=== PATIENT | female | born 1965 ===

== ENCOUNTER 2024-04-21 08:39 | Observation (INO) ==
--- NOTE | 2023-10-11 10:31 | PAT Medication Instructions ---
Medication Instructions Date of Service October 11, 2023 Home Medications Medication Instructions Recorded tizanidine 4 mg tablet 4 mg PO BID PRN muscle spasticity 08/15/23 #60 tabs losartan 100 mg-hydrochlorothiazide 25 mg tablet 1 tab PO QAM albuterol sulfate 90 mcg/actuation aerosol inhaler 1 inh inhalation UD PRN citalopram 40 mg tablet 40 mg PO HS diazepam 5 mg tablet 5 mg PO UD PRN famotidine 1 tab PO DAILY PRN tizanidine 4 mg tablet 4 mg PO BID PRN diphenhydramine HCl 25 mg tablet (Allergy) 25 mg PO HS PRN Continue as directed albuterol sulfate 90 mcg/actuation aerosol inhaler 1 inh inhalation UD PRN(use if needed; please bring with you to hospital day of surgery if possible) diazepam 5 mg tablet 5 mg PO UD PRN(if needed) famotidine 1 tab PO DAILY PRN(if needed) DO NOT take the morning of surgery losartan 100 mg-hydrochlorothiazide 25 mg tablet 1 tab PO QAM Take morning of surgery With a small sip of water, OTHERWISE NOTHING TO EAT OR DRINK AFTER MIDNIGHT: tizanidine 4 mg tablet 4 mg PO BID PRN(if needed) Take evening before surgery citalopram 40 mg tablet 40 mg PO HS tizanidine 4 mg tablet 4 mg PO BID PRN(if needed) diphenhydramine HCl 25 mg tablet (Allergy) 25 mg PO HS PRN(if needed) Other Notes If you have any questions please call us at [phone] or [phone] or [phone] or [phone]
--- NOTE | 2023-10-15 12:49 | Anesthesiology Consultation ---
Date of Service October 15, 2023 Assessment & Plan (1) Encounter for pre-operative examination: - Infectious disease screening: Per assessment on 10/15/23: No known infectious disease contacts or current infectious disease symptoms. No noted recent Covid positive test result. - Surgery scheduled for 10/30/23 cancelled by surgeon's office with notation "Insurance coverage denied" Chart Review Chart Review: Patient seen in Pre Admission Testing Teaching & Discussion Pre-Anesthesia Teaching/Discussion Notes: Instructed NPO after midnight before surgery,except medications with 15 cc of water. Medication instructions provided according to the PAT guidelines. History Surgery Operation Date: 10/30/23 07:15 Proposed Procedures p C5-C6, C6-C7 Disc Replacement - Rafael Varner MD Height/Weight Height: 5 ft Weight: 83.7 kg Allergies Allergy/AdvReac Type Severity Reaction Status Date / Time Penicillins Allergy Unknown Throat Verified 10/02/23 14:25 swelling erythromycin base AdvReac Severe Severe GI Verified 10/02/23 14:25 cramps nickel Allergy Rash, skin Uncoded 10/15/23 13:10 burning/sores Medications Home Medications Medication Instructions Recorded Confirmed Last Taken losartan 100 1 tab PO QAM 08/11/22 10/02/23 Unknown mg-hydrochlorothiazide 25 mg tablet albuterol sulfate 90 mcg/actuation 1 inh inhalation UD PRN ALLERGIC 09/05/22 10/02/23 Unknown aerosol inhaler ASTHMA citalopram 40 mg tablet 40 mg PO HS 09/08/22 10/02/23 Unknown diazepam 5 mg tablet 5 mg PO UD PRN Anxiety 09/08/22 10/02/23 Unknown famotidine 1 tab PO DAILY PRN Unknown 09/08/22 10/02/23 Unknown tizanidine 4 mg tablet 4 mg PO BID PRN muscle spasticity 08/15/23 10/02/23 Unknown #60 tabs diphenhydramine HCl 25 mg tablet 25 mg PO HS PRN Allergy Symptoms 10/02/23 10/02/23 Unknown (Allergy) Past Medical History Medical History ADHD Allergic asthma Anxiety Degenerative disc disease GERD (gastroesophageal reflux disease) HTN (hypertension) Lower back pain Neck problem Thyroid nodule Under monitoring Exercise / Class Metabolic Activity II 4-5 Yardwork/Stairs/Walk up hill (one FS: No CP, no SOB) Past Family History Family History Father Family history of diabetes mellitus Aunt Family history of diabetes mellitus Past Surgical History Surgical History History of colonoscopy History of endoscopy History of gynecologic surgery Hystersalpingogram History of surgery Spinal lesion removed from back History of surgery on left wrist History of surgery on right wrist History of thyroid cyst Thyroid nodule removed History of tooth extraction Nausea and vomiting after administration of anesthetic agent Past Anesthesia History No Hx of Anesthesia Complications and No Family Hx of Anesthesia Complications History of PONV No Hx of Motion Sickness and History of PONV Social History Smoking Status: Former smoker tobacco type: cigarettes Do You Dip or Chew Tobacco: No Smoking End Date: Quit decades ago Hx Alcohol Use: Yes (SOCIAL) Alcohol type: beer, wine and hard liquor alcohol intake frequency: holidays/special occasions only Hx Substance Use: No substance use type: does not use Review of Systems Patient denies chest pain, shortness of breath, dyspnea on exertion, fever, chills, cough, wheezing, palpitations. Physical Exam Vital Signs BP 135/84 P 69 TEMP 98.6 SP02 97%RA RESP 16 Physical Significantly decreased cervical extension range of motion. Full TMJ range of motion. TMD 3 finger breaths Mallampati Score 3 Dentition: missing upper left side Lungs: clear throughout to auscultation Cardiac: regular rate and rhythm, no murmurs noted Spine: normal Carotid arteries: negative bruit Extremities: no LE edema Short, thick neck Lab Results Anesthesia Preop Results Results Anesthesia Widget: WBC 7.82 K/ul (4.8-10.8) 10/15/23 Hgb 13.1 g/dl (12.0-16.0) 10/15/23 Hct 37.8 % (37.0-47.0) 10/15/23 Plt 262 K/uL (130-400) 10/15/23 Na 141 mmol/L (136-145) 10/15/23 K 3.3 mmol/L (3.5-5.1) L 10/15/23 Cl 103 mmol/L (98-107) 10/15/23 CO2 32 mmol/L (21-32) 10/15/23 BUN 16 mg/dl (6-23) 10/15/23 Creat 0.77 mg/dl (0.6-1.2) 10/15/23 Glucose Level 99 mg/dl (70-99(Fasting)) 10/15/23 PT 10.7 Seconds (9.0-12.0) 10/15/23 PTT 26 Seconds (21-31) 10/15/23 INR 1.0 (0.9-1.1) 10/15/23 Blood Type A Positive 10/15/23 Antibody Screen NEGATIVE 10/15/23 Testing Electrocardiogram Date: 10/15/23 NSR at 68bpm. Rightward axis. NS TWA. unconfirmed report. Chest X-Ray Date: 10/15/23 FINDINGS: Cardiomediastinal and hilar silhouettes are within normal limits. Mild right hemidiaphragmatic elevation. No pneumothorax, pleural effusion or pulmonary edema. Bones appear grossly intact. IMPRESSION: No acute process.
--- NOTE | 2024-03-24 11:13 | PAT Medication Instructions ---
Medication Instructions Date of Service March 24, 2024 Home Medications Medication Instructions Recorded tizanidine 4 mg tablet 4 mg PO BID PRN muscle spasticity 08/15/23 #60 tabs losartan 100 mg-hydrochlorothiazide 25 mg tablet 1 tab PO QAM albuterol sulfate 90 mcg/actuation aerosol inhaler 1 inh inhalation UD PRN ALLERGIC ASTHMA citalopram 40 mg tablet 40 mg PO HS diazepam 5 mg tablet 5 mg PO UD PRN Anxiety famotidine 1 tab PO DAILY PRN gerd tizanidine 4 mg tablet 4 mg PO BID PRN muscle spasticity diphenhydramine HCl 25 mg tablet (Allergy) 25 mg PO HS PRN Allergy Symptoms DO NOT take the morning of surgery losartan 100 mg-hydrochlorothiazide 25 mg tablet 1 tab PO QAM Take morning of surgery With a small sip of water, OTHERWISE NOTHING TO EAT OR DRINK AFTER MIDNIGHT: albuterol sulfate 90 mcg/actuation aerosol inhaler 1 inh inhalation UD PRN ALLERGIC ASTHMA (use if needed; please bring rescue inhaler with you to hospital day of surgery if possible) diazepam 5 mg tablet 5 mg PO UD PRN Anxiety (if needed) famotidine 1 tab PO DAILY PRN gerd (if needed) tizanidine 4 mg tablet 4 mg PO BID PRN muscle spasticity (if needed) Take evening before surgery albuterol sulfate 90 mcg/actuation aerosol inhaler 1 inh inhalation UD PRN ALLERGIC ASTHMA (if needed) citalopram 40 mg tablet 40 mg PO HS diazepam 5 mg tablet 5 mg PO UD PRN Anxiety (if needed) famotidine 1 tab PO DAILY PRN gerd (if needed) tizanidine 4 mg tablet 4 mg PO BID PRN muscle spasticity (if needed) diphenhydramine HCl 25 mg tablet (Allergy) 25 mg PO HS PRN Allergy Symptoms (if needed) Other Notes If you have any questions please call us at [phone] or [phone] or [phone] or [phone]
--- NOTE | 2024-03-27 14:22 | Anesthesiology Consultation ---
Date of Service March 27, 2024 Assessment & Plan (1) Encounter for pre-operative examination: Infectious disease screening: Per assessment on 03/27/24: No known recent infectious disease contacts or current infectious disease symptoms. Chart Review Chart Review: Acceptable Risk for Surgery and Patient seen in Pre Admission Testing Teaching & Discussion Pre-Anesthesia Teaching/Discussion Notes: Instructed NPO after midnight before surgery,except medications with 15 cc of water. Medication instructions provided according to the PAT guidelines. History Surgery Operation Date: 10/30/23 07:15 Proposed Procedures p C5-C6, C6-C7 Disc Replacement - Rafael Varner MD Operation Date: 04/21/24 11:50 Proposed Procedures p C5-C6, C6-C7 Anterior Cervical Decompression, Interbody Fusion and Cage - Rafael Varner MD Height/Weight Height: 5 ft 0.5 in Weight: 87.7 kg Allergies Allergy/AdvReac Type Severity Reaction Status Date / Time Penicillins Allergy Unknown Throat Verified 03/24/24 07:38 swelling erythromycin base AdvReac Severe Severe GI Verified 03/24/24 07:38 cramps nickel Allergy Rash, skin Uncoded 03/24/24 07:38 burning/sores Medications Home Medications Medication Instructions Recorded Confirmed Last Taken losartan 100 1 tab PO QAM 08/11/22 03/24/24 Unknown mg-hydrochlorothiazide 25 mg tablet albuterol sulfate 90 mcg/actuation 1 inh inhalation UD PRN ALLERGIC 09/05/22 03/24/24 Unknown aerosol inhaler ASTHMA citalopram 40 mg tablet 40 mg PO HS 09/08/22 03/24/24 Unknown diazepam 5 mg tablet 5 mg PO UD PRN Anxiety 09/08/22 03/24/24 Unknown famotidine 1 tab PO DAILY PRN gerd 09/08/22 03/24/24 Unknown tizanidine 4 mg tablet 4 mg PO BID PRN muscle spasticity 08/15/23 03/24/24 Unknown #60 tabs diphenhydramine HCl 25 mg tablet 25 mg PO HS PRN Allergy Symptoms 10/02/23 03/24/24 Unknown (Allergy) Past Medical History Medical History ADHD Allergic asthma Anxiety Degenerative disc disease GERD (gastroesophageal reflux disease) HTN (hypertension) Lower back pain Obesity Thyroid nodule Under monitoring Exercise / Class Metabolic Activity II 4-5 Yardwork/Stairs/Walk up hill (one FS: No CP, no SOB) Past Family History Family History Father Family history of diabetes mellitus Aunt Family history of diabetes mellitus Past Surgical History Surgical History History of colonoscopy History of endoscopy History of gynecologic surgery Hystersalpingogram History of surgery Spinal lesion removed from back History of surgery on left wrist History of surgery on right wrist History of thyroid cyst Thyroid nodule removed History of tooth extraction Nausea and vomiting after administration of anesthetic agent Past Anesthesia History No Hx of Anesthesia Complications and No Family Hx of Anesthesia Complications History of PONV No Hx of Motion Sickness and History of PONV Social History Smoking Status: Former smoker tobacco type: cigarettes Do You Dip or Chew Tobacco: No Smoking End Date: Quit many years ago Hx Alcohol Use: Yes Alcohol type: beer, wine and hard liquor alcohol intake frequency: holidays/special occasions only Hx Substance Use: No substance use type: does not use Review of Systems Patient denies chest pain, shortness of breath, dyspnea on exertion, fever, chills, cough, wheezing, palpitations. Physical Exam Vital Signs BP 144/87 P 68 TEMP 98.3 SP02 96%RA RESP 16 Physical Decreased cervical extension range of motion. Full TMJ range of motion. TMD > 3.5 finger breaths Mallampati Score III Dentition: missing left upper side, + crowns Lungs: clear throughout to auscultation Cardiac: regular rate and rhythm, no murmurs noted Spine: normal Carotid arteries: negative bruit Extremities: no LE edema Thick neck Lab Results Anesthesia Preop Results Results Anesthesia Widget: WBC 7.73 K/ul (4.8-10.8) 03/27/24 Hgb 13.4 g/dl (12.0-16.0) 03/27/24 Hct 37.9 % (37.0-47.0) 03/27/24 Plt 234 K/uL (130-400) 03/27/24 Na 139 mmol/L (136-145) 03/27/24 K 3.5 mmol/L (3.5-5.1) 03/27/24 Cl 102 mmol/L (98-107) 03/27/24 CO2 29 mmol/L (21-32) 03/27/24 BUN 14 mg/dl (6-23) 03/27/24 Creat 0.79 mg/dl (0.6-1.2) 03/27/24 Glucose Level 124 mg/dl (70-99(Fasting)) H 03/27/24 PT 10.6 Seconds (9.0-12.0) 03/27/24 PTT 25 Seconds (21-31) 03/27/24 INR 1.0 (0.9-1.1) 03/27/24 Blood Type A Positive 03/27/24 Antibody Screen NEGATIVE 03/27/24 Testing Electrocardiogram Date: 10/15/23 NSR at 68bpm. Rightward axis. NS TWA. Chest X-Ray Date: 10/15/23 FINDINGS: Cardiomediastinal and hilar silhouettes are within normal limits. Mild right hemidiaphragmatic elevation. No pneumothorax, pleural effusion or pulmonary edema. Bones appear grossly intact. IMPRESSION: No acute process.
[~2024-04-21 08:39] MED LIST: ALLERGY Noted to ORDERED Medication SCH; ceFAZolin 2000MG 2,000 MG/15 ML SYR IV SCH
[2024-04-21] MEDS: LACTATED RINGER'S 1,000 ML IV SCH ×2 (09:20→18:47)
[2024-04-21] MEDS: LR 60ML/HR IV SCH (09:20)
[2024-04-21] MEDS: ACETAMINOPHEN 500 MG TAB PO SCH (09:21)
[2024-04-21] MEDS: SODIUM CHLORIDE 0.9% 1,000 ML IV SCH (09:21)
[2024-04-21] MEDS: GABAPENTIN 900 MG DOSE PO SCH (09:21)
[2024-04-21] MEDS: VANCOMYCIN HCL 1,500 MG in SODIUM CHLORIDE 0.9% 500 ML IV SCH (09:26)
[2024-04-21] MEDS ORDERED: fentaNYL citrate PF 100 MCG/2 ML VIAL ONE ×2 (11:29→13:39)
[2024-04-21] MEDS ORDERED: MIDAZOLAM HCL 1 MG/ML 2ML VIAL ONE (11:29)
[2024-04-21] MEDS ORDERED: ePHEDrine sulfate 50 MG/ML AMP IV PRN (11:35)
[2024-04-21] MEDS ORDERED: HYDROmorphone INJ 2 MG/ML SYR/VIAL IV PRN (11:35)
[2024-04-21] MEDS ORDERED: ATROPINE SULFATE 0.1 MG/ML 10ML SYR IV PRN (11:35)
[2024-04-21] MEDS ORDERED: PROMETHAZINE HCL 6.25 MG in SODIUM CHLORIDE 0.9% 50 ML IV PRN (11:35)
[2024-04-21] MEDS ORDERED: ONDANSETRON INJ 2 MG/ML 2 ML VIAL IV PRN ×2 (11:35→17:20)
[2024-04-21] MEDS: SCOPOLAMINE 1 MG/72 HR TDSY PATCH TD ONE (11:50)
[2024-04-21] MEDS: SCOPOLAMINE 1 MG/72 HR TDSY PATCH TD STA (11:55)
[2024-04-21] MEDS ORDERED: REMIFENTANIL HCL 1 MG VIAL IV ONE (11:58)
--- NOTE | 2024-04-21 12:21 | History & Physical Bridge Note ---
Date of Service April 21, 2024 History & Physical Bridge Note I have examined the patient, reviewed the History & Physical and in the interval since the performance of the History & Physical I have noted the following changes of clinical significance: no changes noted
[2024-04-21] MEDS ORDERED: SUGAMMADEX SODIUM 200 MG/2 ML VIAL IV ONE (12:59)
[2024-04-21] MEDS ORDERED: ROCURONIUM BROMIDE 10 MG/ML 5 ML VIAL IV ONE ×2 (12:59→15:04)
[2024-04-21] MEDS ORDERED: ONDANSETRON INJ 2 MG/ML 2 ML VIAL ONE (12:59)
[2024-04-21] MEDS ORDERED: DEXAMETHASONE SOD INJ 4 MG/ML VIAL ONE (12:59)
[2024-04-21] MEDS ORDERED: LIDOCAINE 2% 2 ML VIAL/AMP(20MG/ML) INFIL ONE (12:59)
[2024-04-21] MEDS ORDERED: PROPOFOL IV EMULSION 10 MG/ML 20 ML VIAL IV ONE ×2 (12:59→14:12)
[2024-04-21] MEDS ORDERED: ePHEDrine sulfate 50 MG/5 ML SYR ONE (13:08)
[2024-04-21] MEDS ORDERED: ePHEDrine sulfate 50 MG/ML AMP ONE (13:08)
[2024-04-21] MEDS: VANCOMYCIN HCL 1000MG/20ML VIAL ONE (13:36)
[2024-04-21] MEDS: FLOSEAL HEMOSTATIC MATRIX 5ML TOP ONE (16:24)
[2024-04-21] MEDS: THROMBIN 5000 UNITS KIT ONE (16:25)
[2024-04-21] MEDS: GELATIN SPONGE 12-7MM ONE (16:25)
[2024-04-21] MEDS ORDERED: SOD PHOSPHATE/SOD BIPHOSPHATE ENEMA 132 ML BTL PR PRN (17:20)
[2024-04-21] MEDS ORDERED: METOCLOPRAMIDE HCL INJ 5 MG/ML 2 ML VIAL IV PRN (17:20)
[2024-04-21] MEDS ORDERED: MAGNESIUM HYDROXIDE SUSP 30 ML UDC PO PRN (17:20)
[2024-04-21] MEDS ORDERED: diphenhydrAMINE Capsule 25 MG CAP PO PRN ×2 (17:20→18:28)
[2024-04-21] MEDS ORDERED: dexAMETHasone 8 MG in SYRINGE 0 ML IV PRN (17:20)
[2024-04-21] MEDS ORDERED: hydrOXYzine HCl 25 MG TAB PO PRN (17:20)
[2024-04-21] MEDS ORDERED: DO NOT ADMINISTER PNEUMOCOCCAL VACCINE PRN (17:20)
[2024-04-21] MEDS ORDERED: ALUMINUM/MAGNESIUM SUSP 30 ML UDC PO PRN (17:20)
[2024-04-21] MEDS ORDERED: FAMOTIDINE 20 MG TAB PO PRN (17:20)
[2024-04-21] MEDS ORDERED: ACETAMINOPHEN 1,000 MG/100 ML VIAL IV PRN (17:20)
[2024-04-21] MEDS ORDERED: LORazepam 0.5 MG TAB PO PRN (17:20)
[2024-04-21] MEDS ORDERED: DO NOT ADMINISTER FLU VACCINE PRN (17:20)
[2024-04-21] MEDS ORDERED: LORazepam 2 MG/1 ML VIAL IV PRN (17:20)
[2024-04-21] MEDS ORDERED: NALOXONE HCL 0.4 MG/1 ML VIAL/CARP IV PRN (17:20)
[2024-04-21] MEDS ORDERED: bisacodyL 10 MG SUPP PR PRN (17:20)
[2024-04-21] MEDS ORDERED: VANCOMYCIN CONSULT ACTIVE PRN (17:20)
[2024-04-21] MEDS ORDERED: ONDANSETRON 4 MG OD TAB PO PRN (17:20)
[2024-04-21] MEDS ORDERED: RACEPINEPHRINE 2.25% NEBU SOLN 0.5 ML VIAL INH PRN (17:20)
[2024-04-21] MEDS ORDERED: HYDROmorphone INJ 0.5 MG/0.5 ML SYR IV PRN (17:20)
[2024-04-21] MEDS ORDERED: PROMETHAZINE 12.5 MG/50.5 ML BAG IV PRN (17:20)
--- NOTE | 2024-04-21 17:20 | Post Operative Brief Note ---
PG Immediate Post Op with CF Date of Surgery April 21, 2024 Pre & Post Diagnosis Operation Date: 04/21/24 12:35 Pre-Op Diagnosis: Cervical Radiculopathy Post-Op Diagnosis: Cervical Radiculopathy I identified the patient and participated in the time-out.: Yes Procedure Operation Date: 04/21/24 12:35 Actual Procedures p C5-C6, C6-C7 Anterior Cervical Decompression, Interbody Fusion and Cage(Not Applicable) - Rafael Varner MD Surgeon Rafael Varner MD [employer] none Estimated Blood Loss 20 Findings Consistent with Post-Op Diagnosis Drains López Catheter
[2024-04-21] MEDS: fentaNYL citrate PF 100 MCG/2 ML VIAL IV PRN (17:23)
--- NOTE | 2024-04-21 17:39 | Fluoroscopy Report ---
FL cervical 2-3V CLINICAL HISTORY: C5-C7 ACDF TECHNIQUE: 8 views were obtained with the C-arm in the OR with the above procedure. Total fluoroscopy time was 55.9 seconds. Radiation dose was 128.26 mGy. Comparison: Comparison is made to CT cervical spine 01/03/2024 FINDINGS/IMPRESSION: Intraoperative images were obtained of ACDF placement spanning C5-C7 Please correlate with intraoperative fluoroscopy and operative report. ACT 112: Negative or not required by law. Electronically signed by: Sedrick Emery M.D. 04/21/2024 5:37 PM
--- NOTE | 2024-04-21 17:50 | Anesthesiology Progress Note ---
Date of Service April 21, 2024 Anesthesia Post Procedure Vital Signs Vital Signs: Temp Pulse Resp BP Pulse Ox O2 Del Method O2 Flow Rate 04/21/24 17:45 37.1 C 97 H 14 131/81 95 Nasal Cannula 2 04/21/24 17:35 96 H 13 152/83 H 95 Nasal Cannula 2 04/21/24 17:25 94 H 18 132/92 96 Nasal Cannula 2 04/21/24 17:15 96 H 14 157/90 H 95 Nasal Cannula 2 04/21/24 17:05 100 H 20 161/89 H 98 Oxymask 7 04/21/24 16:50 101 H 19 169/94 H 98 Oxymask 7 04/21/24 16:41 37.1 C 101 H 12 168/86 H 95 Oxymask 7 04/21/24 09:34 36.9 C 65 18 132/72 65 L Room Air Pain Intensity Neck: Pain Intensity: 3 Transfer of Care Handoff Completed per policy Notes Mental Status: alert / awake / arousable and participated in evaluation Patient Amnestic to Procedure: Yes Nausea / Vomiting: adequately controlled Pain: adequately controlled Airway Patency, RR, SpO2: stable & adequate BP & HR: stable & adequate Hydration State: stable & adequate Anesthetic Complications: no major complications apparent and Pt Satisfied with anesthetic care
[2024-04-21] MEDS ORDERED: FAMOTIDINE PO PRN (17:59)
[2024-04-21] MEDS ORDERED: tiZANidine HCL 4 MG TABLET PO PRN (17:59)
[2024-04-21] MEDS ORDERED: ALBUTEROL HFA 8 GM INHALER INH PRN (17:59)
[2024-04-21] MEDS ORDERED: diazePAM 5 MG TABLET PO PRN (17:59)
[2024-04-21] MEDS: CHECK SCOPOLAMINE PATCH PLACEMENT SCH (18:18)
[2024-04-21] MEDS: FAMOTIDINE/PF 20 MG/2 ML VIAL IV ONE (18:18)
[2024-04-21] MEDS: ACETAMINOPHEN 500 MG TAB PO PRN (21:18)
[2024-04-21] MEDS: DOCUSATE SODIUM/SENNA 50/8.6MG TAB PO SCH (21:18)
[2024-04-21] MEDS: CITALOPRAM 40 MG TAB PO SCH (21:18)
[2024-04-21] MEDS ORDERED: CYCLOBENZAPRINE HCL 10 MG TAB PO SCH (22:00)
[2024-04-22] MEDS: oxyCODONE/ACETAMINOPHEN 5mg/325mg TAB PO PRN (01:23)
[2024-04-22] MEDS: VANCOMYCIN HCL 1,250 MG in SODIUM CHLORIDE 0.9% 250 ML IV SCH (03:26)
[2024-04-22] MEDS: POLYETHYLENE (MIRALAX) 17 GM PACK PO SCH (05:07)
[2024-04-22 07:10] VITALS: RESP 16
--- NOTE | 2024-04-22 08:32 | Hospitalist Consultation ---
Date of Consultation April 22, 2024 Assessment & Plan (1) Cervical radiculopathy: Patient had C5-C6, C6-C7 anterior cervical decompression, interbody fusion and cage with Dr. Varner on 04/21/2024 - Defer VTE ppx, pain management, activity level, and discharge planning to the primary team - Continue bowel regimen. Patient has passed gas, but no bowel movement reported yet - Postop labs revealed leukocytosis likely secondary to steroids. Afebrile and no other signs of infection at this time. Hgb stable at 12.2 (2) HTN (hypertension): Takes Losartan-HCTZ 100-25 mg at home - Blood pressures have been stable post-op (3) GERD (gastroesophageal reflux disease): Takes famotidine 20 mg PRN at home (4) Anxiety: Takes citalopram 40 mg HS and diazepam 5 mg PRN at home (5) Allergic asthma: Takes albuterol sulfate PRN and diphenhydramine HCl PRN Plan Patient was discharged via primary service prior to this consult being completed. Chart reviewed, labs ordered and reviewed. Patient appeared medically stable for discharge from review of chart/labs. History of Present Illness Reason for Consultation: Post-op medical management Requesting Physician: Rafael Varner MD Attending Physician: Rafael Varner MD History of Present Illness Mrs. Land is a 58 year-old woman with PMH of ADHD, allergic asthma, anxiety, degenerative disc disease, GERD, hypertension, lower back pain, neck pain, and a thyroid nodule (monitoring). She presented for C5-C6, C6-C7 anterior cervical decompression, interbody fusion and cage with Dr. Varner on 04/21/2024. Per review of operative report, EBL was listed as 20 cc, and there were no complications noted. Per review of patient's vitals postop, she had been hypertensive and tachycardic initially, however, all vitals stable morning of 04/22 and patient is on room air. Patient was discharged morning of 04/22/24 prior to this hospitalist consult being completed. Labs were ordered via our service this morning, and leukocytosis likely secondary to steroids; no clinical signs of infection at this time. Calcium mildly low at 8.4. Hgb stable and electrolytes WNL. Allergies Allergy/AdvReac Type Severity Reaction Status Date / Time Penicillins Allergy Severe Throat Verified 04/21/24 09:32 swelling nickel Allergy Intermediate Rash, skin Verified 04/21/24 11:48 burning/sores shellfish derived Allergy Intermediate Unknown Verified 04/21/24 11:48 erythromycin base AdvReac Severe Severe GI Verified 04/21/24 09:32 cramps Home Medications Medication Instructions Recorded Confirmed Type losartan 100 1 tab PO QAM 08/11/22 04/21/24 History mg-hydrochlorothiazide 25 mg tablet albuterol sulfate 90 mcg/actuation 1 inh inhalation UD PRN ALLERGIC 09/05/22 04/21/24 History aerosol inhaler ASTHMA citalopram 40 mg tablet (Celexa) 40 mg PO HS 09/08/22 04/21/24 History diazepam 5 mg tablet 5 mg PO UD PRN Anxiety 09/08/22 04/21/24 History famotidine 1 tab PO DAILY PRN gerd 09/08/22 04/21/24 History diphenhydramine HCl 25 mg tablet 25 mg PO HS PRN Allergy Symptoms 10/02/23 04/21/24 History (Allergy) tizanidine 4 mg tablet (Zanaflex) 4 mg PO BID PRN muscle spasticity 04/21/24 04/21/24 History Patient History Medical History ADHD Allergic asthma Anxiety Degenerative disc disease GERD (gastroesophageal reflux disease) HTN (hypertension) Lower back pain Obesity Thyroid nodule Under monitoring Surgical History History of colonoscopy History of endoscopy History of gynecologic surgery Hystersalpingogram History of surgery Spinal lesion removed from back History of surgery on left wrist History of surgery on right wrist History of thyroid cyst Thyroid nodule removed History of tooth extraction Nausea and vomiting after administration of anesthetic agent Family History Father Family history of diabetes mellitus Aunt Family history of diabetes mellitus Social History Smoking Status: Former smoker Smoking End Date: Quit many years ago; Second Hand Exposure: No; Do You Dip or Chew Tobacco: No; Tobacco Cessation Education Requested by Patient: No Hx Alcohol Use: No Hx Substance Use: No Preferred Language: Serbian Communication Ability: Effective Data Programmer Required: No Beliefs That Will Affect Care: None Current Living Situation: Spouse Other Information That Helps Us Care for You: No Feels Safe at Home: Yes Safety Concerns: Feels Safe At This Time Assistive Devices: Glasses Physical Exam Physical Exam: Patient was discharged prior to being evaluated by hospital medicine service. Results & Data Results & Data Vital Signs (Past 12 Hours) Vital Signs Temp Pulse Resp BP Pulse Ox O2 Del Method O2 Flow Rate 04/22/24 07:30 82 16 94 Room Air 04/22/24 07:09 98.2 F 83 16 136/80 94 Room Air 04/22/24 05:11 97.9 F 81 18 120/74 95 Room Air 04/22/24 04:30 81 16 97 Nasal Cannula 1.5 04/22/24 03:18 98.1 F 87 19 113/72 98 Nasal Cannula 1 04/22/24 01:14 98.2 F 90 18 144/80 H 97 Room Air 1 04/21/24 23:40 92 H 16 97 Nasal Cannula 2 04/21/24 23:15 98.2 F 94 H 17 115/71 92 Room Air 04/21/24 21:21 98.1 F 103 H 19 150/80 H 93 Room Air Laboratory Results Ordered and reviewed CBC and BMP PG Care Time/CCT Total # of Minutes Spent Total Time Spent with Patient: Total time spent is greater than 50% in coordination of care (as documented) at patient's floor/unit and/or counseling patient: Coding Level of Care Code None Diagnoses Cervical radiculopathy M54.12 HTN (hypertension) I10 GERD (gastroesophageal reflux disease) K21.9 Anxiety F41.9 Allergic asthma J45.909
[2024-04-22 08:40] LABS: Hematocrit (blood only) 34.7 % (37.0-47.0); Hemoglobin 12.2 g/dl (12.0-16.0); Mean Corpuscular Hemoglobin 31.3 pg (25.0-34.0); Mean Corpuscular Hgb Conc 35.2 g/dL (32.0-36.0); Platelet Count 268 K/uL (130-400); RDW Coefficient of Variation 13.2 % (11.5-14.5); RDW Standard Deviation 42.8 fL (36.4-46.3)
[2024-04-22 08:54] LABS: BUN Creatinine Ratio 17.6 (10-20); Calcium 8.4 mg/dl (8.6-10.3); Creatinine Clr Calc Pharmacy 82.1 ml/min
[2024-04-22 09:27] VITALS: BP 162/76; PULSE 97; TEMP 98.1; O2SAT 98
--- NOTE | 2024-04-22 10:36 | Discharge Summary ---
Date of Service April 22, 2024 Admission HPI (Per Admitting) Cervical stenosis, surgery 04/22/24 Principal Diagnosis Same as "Discharge Diagnosis" noted below under Discharge Instructions. Discharge Data Consultations 04/21/24 17:20 Consult Hospitalist Routine Procedures Performed Operation Date: 04/21/24 12:35 Actual Procedures p C5-C6, C6-C7 Anterior Cervical Decompression, Interbody Fusion and Cage(Not Applicable) - Rafael Varner MD Ordered Studies 04/21/24 12:35 FL cervical 2-3V Routine Hospital Course (1) Other cervical disc degeneration at C6-C7 level: surgery (2) Other cervical disc degeneration at C5-C6 level: PG Care Time/CCT Total # of Minutes Spent Total Time Spent with Patient: Total time spent is greater than 50% in coordination of care (as documented) at patient's floor/unit and/or counseling patient: Discharge Plan Discharge Items Patient Disposition: Home - Self-Care Reason For Visit: Other Cervical Disc Degeneration at C5-C6 Level, O Discharge Diagnosis: cervical stenosis, radiculopathy Condition on Discharge: Good Activity: As commented below Lifting: No more than 10 pounds Bathing: May shower/bathe in 3 days Exercise/Sports: Wait until after follow-up appointment Weightbearing: Full weightbearing Non-emergency contact: Surgeon Call non-emergency contact if: your symptoms worsen Follow-up/Referrals: [facility] [Primary Care Provider] - Diet: Regular Addtl Attending Provider Instructions: Maintain dressing for 2 days, then may shower. Keep steristrips on until follow up in 2 weeks. Oxycodone sent through outpatient chart. Pending Studies at Discharge: No Stand-Alone Forms: My [facility], Smoking Cessation Medications and DC Order Prescriptions: Continued losartan-hydrochlorothiazide 100-25 mg tablet 1 tab PO QAM albuterol sulfate 90 mcg/actuation Hfa Aerosol Inhaler 1 inh INHALATION UD PRN (Reason: ALLERGIC ASTHMA) citalopram [Celexa] 40 mg Tablet 40 mg PO HS diazepam 5 mg Tablet 5 mg PO UD PRN (Reason: Anxiety) famotidine 1 tab PO DAILY PRN (Reason: gerd) diphenhydramine HCl [Allergy] 25 mg Tablet 25 mg PO HS PRN (Reason: Allergy Symptoms) tizanidine [Zanaflex] 4 mg tablet 4 mg PO BID PRN (Reason: muscle spasticity) No Action oxycodone-acetaminophen 5-325 mg tablet 1 tab PO Q6H Qty: 20 0RF Discharge Orders: Discharge Order (Routine); Ordered 04/22/24 Ordered By: Rafael Varner Admission Data Admit Date/Time: 04/21/24 17:20 Attending Provider: Rafael Varner Admit Provider: Rafael Varner Primary Care Provider: PCP,NO Other Providers: Franky Bosch Other Interventions: Discharge Summary Assessment (RN) Last Done: 04/22/24 10:53
--- NOTE | 2024-04-23 17:00 | Operative Report ---
PG Post Operative Report Pre & Post Diagnosis Operation Date: 04/21/24 12:35 Pre-Op Diagnosis: Cervical Radiculopathy Post-Op Diagnosis: Cervical Radiculopathy I identified the patient and participated in the time-out.: Yes Procedure Operation Date: 04/21/24 12:35 Actual Procedures p C5-C6, C6-C7 Anterior Cervical Decompression, Interbody Fusion and Cage(Not Applicable) - Rafael Varner MD Surgeon Rafael Varner MD Machine Setter Sheet Metal none Estimated Blood Loss 20 Findings Consistent with Post-Op Diagnosis Specimens None Description of Procedure 1. C5-6 anterior cervical decompression, arthrodesis. (69916) 2. C6-7 anterior cervical decompression, arthrodesis. (35418) 3. C5-6 interbody cage with fixation, ROIC 14 x 17 x 6 mm. (98236) 4. C6-7 interbody cage with fixation, ROIC 14 x 17 x 6 mm. (31504) Patient was taken the operating room after adequate esthesia was carefully positioned in spine position on the OSI flattop table. Preprepped was performed, the patient was then positioned for anterior approach to the cervical spine, fluoroscopy was used to yogesh the location of the incision followed by prepping and draping. I began the procedure with the left transverse incision, moved down past the medial border the sternocleidomastoid and initially dissecting down to the anterior aspect of the cervical spine. The position was confirmed fluoroscopically in AP and lateral views. These 2 levels were marked followed by then mobilizing tissues in this region, and once this was completed I then inserted distractor pins starting at C6-C7 first. Retractors were then set, and I began the procedure bringing in the operative microscope with incising the anterior annulus and then removing the disc material thoroughly from the disc space including cartilage from the endplates. I then mobilized the disc space up to an improved level and then moved posteriorly to decompress across the interspace down to the dura with removal of spondylosis and disc material. Once this decompression was completed out to the uncinates, but then went through trials selecting the interbody cage as noted, additional preparation of the endplates was performed followed by then insertion of the device with fusion materials contained. The plates were then inserted for fixation, and the distractor pin was removed from C7, and I advanced this up to the C5 level for the C5-6 level. Retractors were then reset, a similar procedure was performed with anterior annulotomy, thorough removal of disc material and disc space decompression posteriorly across the interspace. Trials were then once again utilized and I selected same size cage as previously and this was then inserted without issue. Once in place, and then inserted the fixation blades, all these blades were then inserted and checked fluoroscopically for proper position. Distractor pins were removed, at the placement locations Floseal and bone wax was utilized to plug holes, final inspection revealed no issues in terms of bleeding or otherwise. Final images were obtained, vancomycin powder was then placed followed by then closure using 3-0 Vicryl sutures, benzoin and Steri-Strips and a sterile dressing. The patient tolerated the procedure well was taken to recovery room satisfactory condition. I attest to the content of the Intraoperative Record and any orders documented therein. Any exceptions are noted below.
== END 2024-04-22 11:25 | disposition home or self-care (01) ==
LOC: 3E 08:39 → ASU 08:39